=== PATIENT | female | born 1935 | race Caucasian/White ===

== ENCOUNTER 2016-12-27 08:40 | Emergency (ER) | payer OTHER ==
[2016-12-27 08:52] VITALS: O2SAT 90
[2016-12-27] MEDS ORDERED: SILVER NITRATE APPLICATOR 1 APPL TP ONE (09:11)
[2016-12-27] MEDS ORDERED: PHENYLEPHRINE 0.5% NASAL 15 ML SPRAY ONE (09:11)
[2016-12-27] MEDS ORDERED: COCAINE HCL 4% 4 ML BTL TP ONE (09:11)
--- NOTE | 2016-12-27 09:54 | EDPHY ---
H & P Time Seen by Provider: 12/27/16 09:12 HPI/ROS: Chief complaint. Nose bleed HPI. 81-year-old female with nose bleed that started this morning. Bleeding from the right side of her nose. She has had previous nose bleeds requiring cautery. No recent nose bleeds however. Denies trauma to her nose, recent upper respiratory symptoms. She does take warfarin and has been neglecting having her INR checked recently. No shortness of breath or chest discomfort ROS Constitutional. no fever/chills, no weakness Eyes. no problems with vision ENT. Nosebleed Cardiovascular. no chest pain Respiratory. no shortness of breath, no cough Abdominal. no abdominal pain, no nausea/vomiting, no diarrhea . no problems urinating MS. no calf pain/swelling, no neck/back pain, no joint pain Skin. no rash Lymph. no swollen glands Neuro. no headache, no dizziness, no difficulty walking or with speech Past Medical/Surgical History: Past medical history significant for atrial fibrillation on Coumadin, cardioversions, pacemaker with defibrillator, aortic valve replacement, atrial septal defect, asthma Social History: , nonsmoker, no alcohol Smoking Status: Never smoked Physical Exam: General Appearance: Alert pleasant well-developed female mild distress vital signs are stable. Eyes: Pupils equal and round no pallor or injection. ENT, active bleeding from right-sided nose Respiratory: There are no retractions, lungs are clear to auscultation. Cardiovascular: Regular rate and rhythm. Gastrointestinal: Abdomen is soft and nontender, no masses, bowel sounds normal. Neurological: Awake and alert, sensory and motor exams grossly normal. Skin: Warm and dry, no rashes. Musculoskeletal: Neck is supple nontender. Extremities symmetrical, full range of motion. Psychiatric: Patient is oriented X 3, there is no agitation. Constitutional: Initial Vital Signs Temperature (C) 36.5 C 12/27/16 08:40 Heart Rate 71 12/27/16 08:40 Respiratory Rate 20 12/27/16 08:40 Blood Pressure 131/72 H 12/27/16 08:40 O2 Sat (%) 90 L 12/27/16 08:40 O2 Delivery Mode Room Air Allergies/Adverse Reactions: No Known Allergies Allergy (Verified 12/27/16 08:46) Home Medications: Medication Instructions Recorded ASPIRIN 07/21/15 Amlodipine Besylate 07/21/15 CALCIUM 07/21/15 Centrum Silver Tablet 07/21/15 Miralax 17 gm (OTC) 07/21/15 Paroxetine HCl 07/21/15 Preservision Softgel 07/21/15 Synthroid 07/21/15 Warfarin Sodium 07/21/15 buPROPion 07/21/15 traZODONE 07/21/15 Medical Decision Making Procedures: Clots were cleared from patient's nose by blowing. Sergio-Synephrine spray. Cotton balls are placed in both nares soaked in cocaine solution. These are removed after 10 minutes The cotton balls were removed. Inspection reveals no bleeding in the left nostril. There appears to be multiple punctate bleeding spots along the septum. A 5.5 cm rhino rocket is placed and inflated with 3 mL of normal saline. Bleeding appears to be controlled at this point ED Course/Re-evaluation: Re-evaluation 11:15 a.m.-- Differential Diagnosis: Patient appears to have right anterior epistaxis with an elevated INR secondary to Coumadin which she had not had checked in quite some time. Bleeding now seems to be controlled. I considered posterior epistaxis as well. - Data Points Laboratory Results: Laboratory Results 12/27/16 09:30 12/27/16 09:30 12/27/16 12/27/16 12/27/16 09:30 09:30 09:30 WBC 6.92 10^3/uL 10^3/uL (3.80-9.50) RBC 4.08 10^6/uL L 10^6/uL (4.18-5.33) Hgb 12.5 g/dL L g/dL (12.6-16.3) Hct 38.1 % % (38.0-47.0) MCV 93.4 fL fL (81.5-99.8) MCH 30.6 pg pg (27.9-34.1) MCHC 32.8 g/dL g/dL (32.4-36.7) RDW 14.4 % % (11.5-15.2) Plt Count 159 10^3/uL 10^3/uL (150-400) MPV 9.5 fL fL (8.7-11.7) Neut % (Auto) 77.9 % H % (39.3-74.2) Lymph % (Auto) 10.7 % L % (15.0-45.0) [place] % (Auto) 6.8 % % (4.5-13.0) Eos % (Auto) 3.6 % % (0.6-7.6) Baso % (Auto) 0.9 % % (0.3-1.7) Nucleat RBC Rel Count 0.0 % % (0.0-0.2) Absolute Neuts (auto) 5.39 10^3/uL 10^3/uL (1.70-6.50) Absolute Lymphs (auto) 0.74 10^3/uL L 10^3/uL (1.00-3.00) Absolute Monos (auto) 0.47 10^3/uL 10^3/uL (0.30-0.80) Absolute Eos (auto) 0.25 10^3/uL 10^3/uL (0.03-0.40) Absolute Basos (auto) 0.06 10^3/uL 10^3/uL (0.02-0.10) Absolute Nucleated RBC 0.00 10^3/uL 10^3/uL (0-0.01) Immature Gran % 0.1 % % (0.0-1.1) Immature Gran # 0.01 10^3/uL 10^3/uL (0.00-0.10) PT 35.0 SEC H SEC (12.0-15.0) INR 3.42 H (0.83-1.16) APTT 43.2 SEC H SEC (23.0-38.0) Sodium 142 mEq/L mEq/L (134-144) Potassium 4.2 mEq/L mEq/L (3.5-5.2) Chloride 108 mEq/L mEq/L (97-110) Carbon Dioxide 24 mEq/l mEq/l (22-31) Anion Gap 10 mEq/L mEq/L (8-16) BUN 19 mg/dL mg/dL (7-23) Creatinine 1.0 mg/dL mg/dL (0.6-1.0) Estimated GFR 53 Glucose 86 mg/dL mg/dL (70-100) Calcium 9.2 mg/dL mg/dL (8.5-10.4) Medications Given: Discontinued Medications Cephalexin (Keflex 500 Mg Prepack#4) 1 btl TAKEHOME EDNOW ONE PRN Reason: Protocol Stop: 12/27/16 11:23 Last Admin: 12/27/16 11:38 Dose: 1 btl Departure - Departure Disposition: Home, Routine, Self-Care Clinical Impression: Acute anterior epistaxis Condition: Good Instructions: Cephalexin (By mouth), Nosebleed (ED) Additional Instructions: Keep packing in for 2-3 days. Use cephalexin which we are giving you 1 pill twice daily while you have the packing in. Follow up with ENT to have packing removed. Your Coumadin level is high today so hold your Coumadin tonight and tomorrow and then resume normal doses. Call Dr. Del Cid today to be seen on Saturday to have packing removed. Referrals: Patient,NotPresent [Unknown] - As per Instructions Maribeth Alarcon MD [Medical Doctor] - As per Instructions Danya Huntley MD [Primary Care Provider] - 2-3 days, call for appt.
[2016-12-27 09:57] LABS: % IMMATURE GRANULYOCYTES 0.1 % (0.0-1.1); ABSOLUTE IMMATURE GRANULOCYTES 0.01 10^3/uL (0.00-0.10); ADD DIFF? NO; ADD MORPH? NO; ADD SCAN? NO; ATYPICAL LYMPHOCYTE FLAG 0 (0-99); FRAGMENT RBC FLAG 0 (0-99); HEMATOCRIT 38.1 % (38.0-47.0); HEMOGLOBIN 12.5 g/dL (12.6-16.3); LEFT SHIFT FLG 0 (0-99); LIPEMIA HEMOLYSIS FLAG 80 (0-99); MEAN CELL HEMOGLOBIN 30.6 pg (27.9-34.1); MEAN CELL HEMOGLOBIN CONCENTR. 32.8 g/dL (32.4-36.7); MEAN CELL VOLUME 93.4 fL (81.5-99.8); MEAN PLATELET VOLUME 9.5 fL (8.7-11.7); PLATELET CLUMPS FLAG 0 (0-99); PLATELET COUNT 159 10^3/uL (150-400); RED BLOOD CELL COUNT 4.08 10^6/uL (4.18-5.33); RED CELL DISTRIBUTION WIDTH 14.4 % (11.5-15.2)
[2016-12-27 10:06] LABS: INR 3.42 (0.83-1.16)
[2016-12-27 10:07] LABS: APTT 43.2 SEC (23.0-38.0)
[2016-12-27 10:14] LABS: ANION GAP 10 mEq/L (8-16); CALCIUM 9.2 mg/dL (8.5-10.4); CARBON DIOXIDE 24 mEq/l (22-31); CHLORIDE 108 mEq/L (97-110); GLOMERULAR FILTRATION RATE 53; GLUCOSE 86 mg/dL (70-100); POTASSIUM 4.2 mEq/L (3.5-5.2); SODIUM 142 mEq/L (134-144)
[2016-12-27] MEDS ORDERED: CEPHALEXIN 500MG PREPACK#4 BTL TAKEHOME ONE (11:22)
[2016-12-27 11:40] VITALS: BP 104/82; PULSE 70; RESP 18; TEMP 98.2
== END 2016-12-27 12:10 | disposition home or self-care (01) ==
LOC: EDUNIT#
PROC: 2Y41X5Z Packing of Nasal Region using Packing Material (ICD-10-PCS; principal; 2016-12-27)
DX: R04.0 Epistaxis (principal); J45.909 Unspecified asthma, uncomplicated; Z79.01 Long term (current) use of anticoagulants; Z79.82 Long term (current) use of aspirin; Z95.0 Presence of cardiac pacemaker

== ENCOUNTER 2016-12-27 14:29 | Emergency (ER) | payer OTHER ==
[2016-12-27 14:36] VITALS: RESP 16
--- NOTE | 2016-12-27 15:20 | EDPHY ---
H & P Stated Complaint: ONGOING NOSE BLEED HPI/ROS: HPI CHIEF COMPLAINT: Right Nare epistaxis HISTORY OF PRESENT ILLNESS: This patient very pleasant 81-year-old female, she lives at [facility], she was seen here earlier today for epistaxis. She had a right Nare anterior bleed with packing in place. She presents back to the emergency room as she is concerned that it is rebleeding. She tells me that when she arrived back at [facility] she had a few drops of blood come from her right Baptiste. She denies any vomiting of blood. Denies generalized weakness, chest pain, shortness of breath, denies significant amount of bleeding. Currently upon arrival to the emergency room the patient is hemodynamically stable no acute distress. She is having no active bleeding at this time. Will continue to monitor for further bleeding. If she continues to bleed we may need to reach change her packing. Past Medical History: Atrial fibrillation, on Coumadin, pacemaker, aortic valve Past Surgical History: Aortic valve replacement Social History: Denies daily use of drugs alcohol tobacco products., lives at [facility] Family History: Noncontributory ROS REVIEW OF SYSTEMS: A comprehensive 10 point review of systems is otherwise negative aside from elements mentioned in the history of present illness. Exam Constitutional appears well nontoxic triage nursing summary reviewed, vital signs reviewed, awake/alert. Eyes normal conjunctivae and sclera, EOMI, PERRLA. HENT left Nare: Packing in place, no significant active bleeding. Posterior pharynx normal. No active bleeding posteriorly. normal inspection, atraumatic, moist mucus membranes, no epistaxis, neck supple/ no meningismus, no raccoon eyes. Respiratory clear to auscultation bilaterally, normal breath sounds, no respiratory distress, no wheezing. Cardiovascular rate normal, regular rhythm, no murmur, no edema, distal pulses normal. Gastrointestinal soft, non-tender, no rebound, no guarding, normal bowel sounds, no distension, no pulsatile mass. Genitourinary no CVA tenderness. Musculoskeletal no midline vertebral tenderness, full range of motion, no calf swelling, no tenderness of extremities, no meningismus, good pulses, neurovascularly intact. Skin pink, warm, & dry, no rash, skin atraumatic. Neurologic awake, alert and oriented x 3, AAOx3, moves all 4 extremities equally, motor intact, sensory intact, CN II-XII intact, normal cerebellar, normal vision, normal speech. Psychiatric normal mood/affect. Heme/Lymph/Immune no lymphadenopathy. Differential Diagnosis: Includes but is not limited to in a particular order, epistaxis on Coumadin, right anterior near bleed. Right posterior near bleed. Medical Decision Making: At this time this patient is not actively bleeding. Will continue to monitor closely for further bleeding. If she states hemodynamically stable no active bleeding allow her to go back to [facility]. Patient's recent chart reviewed. Re-evaluation: 1608: Re-evaluation at this time patient remains hemodynamically stable no acute distress has been no evidence of further epistaxis. She monitored here for over an hour. I will allow her to go back to [facility]. She understands return emergency room if develops any worsening symptoms questions or concerns. Source: Patient - Personal History Current Tetanus Diphtheria and Acellular Pertussis (TDAP): Yes - Medical/Surgical History Hx Asthma: Yes Hx Chronic Respiratory Disease: No Hx Diabetes: No Hx Cardiac Disease: Yes Hx Renal Disease: No Hx Cirrhosis: No Hx Alcoholism: No Hx HIV/AIDS: No Hx Splenectomy or Spleen Trauma: No Other PMH: a fib w/ multiple cardioversions; pacemater w/ defib; aortic valve replacement; atrial septal defect; cataract B; lumpectomy r breast; asthma; - Social History Smoking Status: Never smoked Constitutional: Initial Vital Signs Temperature (C) 36.5 C 12/27/16 14:33 Heart Rate 70 12/27/16 14:33 Respiratory Rate 16 12/27/16 14:33 Blood Pressure 97/53 L 12/27/16 14:33 O2 Sat (%) 90 L 12/27/16 14:33 O2 Delivery Mode Room Air Allergies/Adverse Reactions: No Known Allergies Allergy (Verified 12/27/16 08:46) Home Medications: Medication Instructions Recorded ASPIRIN 07/21/15 Amlodipine Besylate 07/21/15 CALCIUM 07/21/15 Centrum Silver Tablet 07/21/15 Miralax 17 gm (OTC) 07/21/15 Paroxetine HCl 07/21/15 Preservision Softgel 07/21/15 Synthroid 07/21/15 Warfarin Sodium 07/21/15 buPROPion 07/21/15 traZODONE 07/21/15 Departure - Departure Disposition: Home, Routine, Self-Care Clinical Impression: Epistaxis Condition: Good Instructions: Nosebleed (ED) Additional Instructions: 1. Return emergency room if you have any further bleeding. 2. You will need to have her packing removed in 48 hours. 3. Your more than welcome to follow up. I have removed or Ear Nose and Throat. Referrals: Danya Huntley MD [Primary Care Provider] - As per Instructions Levi Parra MD [Medical Doctor] - As per Instructions
[2016-12-27 16:19] VITALS: BP 140/78; PULSE 80; TEMP 98.4; O2SAT 96
== END 2016-12-27 16:19 | disposition home or self-care (01) ==
DX: R04.0 Epistaxis (principal); J45.909 Unspecified asthma, uncomplicated; Z79.01 Long term (current) use of anticoagulants; Z79.82 Long term (current) use of aspirin; Z95.0 Presence of cardiac pacemaker

== ENCOUNTER 2016-12-29 15:59 | Emergency (ER) | payer OTHER ==
[2016-12-29 16:04] VITALS: RESP 16; TEMP 97.5
--- NOTE | 2016-12-29 16:56 | EDPHY ---
H & P Stated Complaint: remove nasal packing placed 3 days ago Time Seen by Provider: 12/29/16 16:33 HPI/ROS: CHIEF COMPLAINT: Requesting nasal packing removal HISTORY OF PRESENT ILLNESS: The patient presents to the ED requesting nasal packing removal. She has a history of epistaxis treated in the emergency department 3 days ago. She is on Coumadin for atrial fibrillation. She stop taking Coumadin at that point time. The patient denies any fever. She does have some mild generalized weakness. She denies abdominal pain or melena. She denies additional acute complaints. REVIEW OF SYSTEMS: A comprehensive 10 point review of systems is otherwise negative aside from elements mentioned in the history of present illness. Source: Patient - Personal History Current Tetanus/Diphtheria Vaccine: Unsure Current Tetanus Diphtheria and Acellular Pertussis (TDAP): Unsure - Medical/Surgical History Hx Asthma: Yes Hx Chronic Respiratory Disease: No Hx Diabetes: No Hx Cardiac Disease: Yes Hx Renal Disease: No Hx Cirrhosis: No Hx Alcoholism: No Hx HIV/AIDS: No Hx Splenectomy or Spleen Trauma: No Other PMH: a fib w/ multiple cardioversions; pacemater w/ defib; aortic valve replacement; atrial septal defect; cataract B; lumpectomy r breast; asthma; - Social History Smoking Status: Never smoked - Physical Exam Exam: General Appearance: Alert, no distress Eyes: Pupils equal and round no pallor or injection ENT, Mouth: Nasal balloon noted in right anterior septum Respiratory: There are no retractions, lungs are clear to auscultation Cardiovascular: Regular rate and rhythm Gastrointestinal: Abdomen is soft and nontender, no masses, bowel sounds normal Neurological: A&O, normal motor function, normal sensory exam, normal cranial nerves Skin: Warm and dry, no rashes Musculoskeletal: Neck is supple nontender Extremities: symmetrical, full range of motion Constitutional: Initial Vital Signs Temperature (C) 36.4 C 12/29/16 16:01 Heart Rate 70 12/29/16 16:01 Respiratory Rate 16 12/29/16 16:01 Blood Pressure 134/83 H 12/29/16 16:01 O2 Sat (%) 95 12/29/16 16:01 O2 Delivery Mode Room Air Allergies/Adverse Reactions: No Known Allergies Allergy (Verified 12/27/16 08:46) Home Medications: Medication Instructions Recorded ASPIRIN 07/21/15 Amlodipine Besylate 07/21/15 CALCIUM 07/21/15 Centrum Silver Tablet 07/21/15 Miralax 17 gm (OTC) 07/21/15 Paroxetine HCl 07/21/15 Preservision Softgel 07/21/15 Synthroid 07/21/15 Warfarin Sodium 07/21/15 buPROPion 07/21/15 traZODONE 07/21/15 Medical Decision Making ED Course/Re-evaluation: The patient presents to the ED requesting packing removal. This was performed by myself without complication. She was observed in the ED for 1 hour without recurrent bleeding. She has complained of some mild generalized weakness without fever or other localizing symptoms. She is noted to have no evidence of a critical anemia. Her INR is currently 2.1. The patient will be discharged from the emergency department at 6:00 p.m. with customary aftercare instructions and return precautions. Differential Diagnosis: Differential diagnosis considered includes anterior epistaxis, critical anemia, hypovolemia - Data Points Laboratory Results: Laboratory Results 12/29/16 17:00 12/29/16 12/29/16 17:00 17:00 WBC 8.55 10^3/uL 10^3/uL (3.80-9.50) RBC 4.01 10^6/uL L 10^6/uL (4.18-5.33) Hgb 12.3 g/dL L g/dL (12.6-16.3) Hct 37.2 % L % (38.0-47.0) MCV 92.8 fL fL (81.5-99.8) MCH 30.7 pg pg (27.9-34.1) MCHC 33.1 g/dL g/dL (32.4-36.7) RDW 14.6 % % (11.5-15.2) Plt Count 173 10^3/uL 10^3/uL (150-400) MPV 9.5 fL fL (8.7-11.7) Neut % (Auto) 79.2 % H % (39.3-74.2) Lymph % (Auto) 9.2 % L % (15.0-45.0) [place] % (Auto) 8.3 % % (4.5-13.0) Eos % (Auto) 2.3 % % (0.6-7.6) Baso % (Auto) 0.6 % % (0.3-1.7) Nucleat RBC Rel Count 0.0 % % (0.0-0.2) Absolute Neuts (auto) 6.77 10^3/uL H 10^3/uL (1.70-6.50) Absolute Lymphs (auto) 0.79 10^3/uL L 10^3/uL (1.00-3.00) Absolute Monos (auto) 0.71 10^3/uL 10^3/uL (0.30-0.80) Absolute Eos (auto) 0.20 10^3/uL 10^3/uL (0.03-0.40) Absolute Basos (auto) 0.05 10^3/uL 10^3/uL (0.02-0.10) Absolute Nucleated RBC 0.00 10^3/uL 10^3/uL (0-0.01) Immature Gran % 0.4 % % (0.0-1.1) Immature Gran # 0.03 10^3/uL 10^3/uL (0.00-0.10) PT 24.0 SEC H D SEC (12.0-15.0) INR 2.13 H (0.83-1.16) APTT 36.3 SEC SEC (23.0-38.0) Departure - Departure Disposition: Home, Routine, Self-Care Clinical Impression: Encounter for removal of nasal packing Condition: Good Instructions: Nosebleed (ED) Additional Instructions: 1. Your INR is 2.13. 2. Please follow up with your primary care provider as needed. 3. Please return to the emergency department for any worsening symptoms. 4. You may follow up with the Ear Nose Throat physician at [facility] for any ongoing symptoms of intermittent nose bleeding. Referrals: Danya Huntley MD [Primary Care Provider] - As per Instructions Denny Felix MD [Medical Doctor] - As per Instructions
[2016-12-29 17:12] LABS: % IMMATURE GRANULYOCYTES 0.4 % (0.0-1.1); ABSOLUTE IMMATURE GRANULOCYTES 0.03 10^3/uL (0.00-0.10); ADD DIFF? NO; ADD MORPH? NO; ADD SCAN? NO; ATYPICAL LYMPHOCYTE FLAG 0 (0-99); FRAGMENT RBC FLAG 0 (0-99); HEMATOCRIT 37.2 % (38.0-47.0); HEMOGLOBIN 12.3 g/dL (12.6-16.3); LEFT SHIFT FLG 0 (0-99); LIPEMIA HEMOLYSIS FLAG 80 (0-99); MEAN CELL HEMOGLOBIN 30.7 pg (27.9-34.1); MEAN CELL HEMOGLOBIN CONCENTR. 33.1 g/dL (32.4-36.7); MEAN CELL VOLUME 92.8 fL (81.5-99.8); MEAN PLATELET VOLUME 9.5 fL (8.7-11.7); PLATELET CLUMPS FLAG 0 (0-99); PLATELET COUNT 173 10^3/uL (150-400); RED BLOOD CELL COUNT 4.01 10^6/uL (4.18-5.33); RED CELL DISTRIBUTION WIDTH 14.6 % (11.5-15.2)
[2016-12-29 17:21] LABS: APTT 36.3 SEC (23.0-38.0); INR 2.13 (0.83-1.16)
[2016-12-29 18:33] VITALS: BP 130/79; PULSE 72; O2SAT 92
== END 2016-12-29 18:33 | disposition home or self-care (01) ==
DX: Z48.00 Encounter for change or removal of nonsurgical wound dressing (principal); J45.909 Unspecified asthma, uncomplicated; Z79.01 Long term (current) use of anticoagulants; Z79.82 Long term (current) use of aspirin; Z95.0 Presence of cardiac pacemaker

== ENCOUNTER → 2017-06-11 | Outpatient (CLI) | payer OTHER | LOC: FIMAGING 14:46 | PROVIDERS: ATTEND Internal Medicine | DX: M47.816 Spondylosis without myelopathy or radiculopathy, lumbar region (principal); M46.97 Unspecified inflammatory spondylopathy, lumbosacral region; I70.90 Unspecified atherosclerosis ==

== ENCOUNTER → 2017-08-20 | Outpatient (CLI) | payer OTHER | LOC: FIMAGING 13:59 | PROVIDERS: ATTEND Physician Assistant Medical | DX: I65.23 Occlusion and stenosis of bilateral carotid arteries (principal) ==

== ENCOUNTER 2017-11-07 14:43 | Emergency (ER) | payer OTHER ==
[2017-11-07 14:59] LABS: PLATELET COUNT 218 10^3/uL (150-400)
[2017-11-07] MEDS ORDERED: NS 1,000 ML IV ONE (15:08)
--- NOTE | 2017-11-07 15:13 | EDPHY ---
H & P Stated Complaint: Syncope one week ago, dizzy/weakness, changing meds. Time Seen by Provider: 11/07/17 14:56 HPI/ROS: CHIEF COMPLAINT: Generalized weakness HISTORY OF PRESENT ILLNESS: The patient is an 82-year-old female who is sent from [facility] for generalized weakness. She reports that she has been becoming gradually weaker over the last 2 weeks. She had a fall about a week and a half ago and was told she might have fractured her ribs. She did not lose consciousness. She has been recovering and doing a lot of lying around in bed since. X-rays were not performed. She has not had any fevers or infections. She has not had any diarrhea or vomiting. She does have a history of atrial fibrillation and is on Coumadin also pacemaker and AV valve replacement several years ago. She has a history of hypoxia and is at 2 L at baseline. REVIEW OF SYSTEMS: Constitutional: denies: chills, fever, recent illness, recent injury EENTM: denies: blurred vision, double vision, nose congestion Respiratory: denies: cough, shortness of breath Cardiac: denies: chest pain, irregular heart rate, lightheadedness, palpitations Gastrointestinal/Abdominal: denies: abdominal pain, diarrhea, nausea, vomiting, blood streaked stools Genitourinary: denies: dysuria, frequency, hematuria, pain Musculoskeletal: denies: joint pain, muscle pain Skin: denies: lesions, rash, jaundice, bruising Neurological: denies: headache, numbness, paresthesia, tingling, dizziness, weakness Hematologic/Lymphatic: denies: blood clots, easy bleeding, easy bruising Immunologic/allergic: denies: HIV/AIDS, transplant EXAM: GENERAL: Well-appearing, well-nourished and in no acute distress. HEAD: Atraumatic, normocephalic. EYES: Pupils equal round and reactive to light, extraocular movements intact, sclera anicteric, conjunctiva are normal. ENT: TMs normal, nares patent, oropharynx clear without exudates. Moist mucous membranes. NECK: Normal range of motion, supple without lymphadenopathy or JVD. LUNGS: Breath sounds clear to auscultation bilaterally and equal. No wheezes rales or rhonchi. HEART: Regular rate and rhythm without murmurs, rubs or gallops. ABDOMEN: Soft, nontender, normoactive bowel sounds. No guarding, no rebound. No masses appreciated. BACK: No CVA tenderness, no spinal tenderness, step-offs or deformities EXTREMITIES: Normal range of motion, no pitting or edema. No clubbing or cyanosis. NEUROLOGICAL: Cranial nerves II through XII grossly intact. Normal speech, normal gait. 5/5 strength, normal movement in all extremities, normal sensation , NIH stroke score 0 PSYCH: Normal mood, normal affect. SKIN: Warm, dry, normal turgor, no visible rashes or lesions. Source: Patient Exam Limitations: No limitations - Personal History Current Tetanus/Diphtheria Vaccine: Unsure Current Tetanus Diphtheria and Acellular Pertussis (TDAP): Unsure - Medical/Surgical History Hx Asthma: Yes Hx Chronic Respiratory Disease: No Hx Diabetes: No Hx Cardiac Disease: Yes Hx Renal Disease: No Hx Cirrhosis: No Hx Alcoholism: No Hx HIV/AIDS: No Hx Splenectomy or Spleen Trauma: No Other PMH: a fib w/ multiple cardioversions; pacemater w/ defib; aortic valve replacement; atrial septal defect; cataract B; lumpectomy r breast; asthma; - Family History Significant Family History: No pertinent family hx - Social History Smoking Status: Never smoked Alcohol Use: Sober Drug Use: None Constitutional: Initial Vital Signs Temperature (C) 36.4 C 11/07/17 14:49 Heart Rate 65 11/07/17 14:49 Respiratory Rate 20 11/07/17 14:49 Blood Pressure 100/81 H 11/07/17 14:49 O2 Sat (%) 95 11/07/17 14:49 O2 Delivery Mode Nasal Cannula O2 (L/minute) 2 Allergies/Adverse Reactions: No Known Allergies Allergy (Verified 12/27/16 08:46) Home Medications: Medication Instructions Recorded ASPIRIN 07/21/15 Amlodipine Besylate 07/21/15 CALCIUM 07/21/15 Centrum Silver Tablet 07/21/15 Miralax 17 gm (OTC) 07/21/15 Paroxetine HCl 07/21/15 Preservision Softgel 07/21/15 Synthroid 07/21/15 Warfarin Sodium 07/21/15 buPROPion 07/21/15 traZODONE 07/21/15 Medical Decision Making - Diagnostics Imaging Results: Imaging Impressions Chest X-Ray 11/07/17 15:09 Impression: 1. Clear lungs. No pneumonia or acute process. 2. Cardiomegaly. No failure or effusion. Head CT 11/07/17 15:13 Impression: No acute intracranial process. Specifically, no subdural hematoma. Findings discussed with Emergency Department physician, Gume Kent M.D., on November 07, 2017 at 1544. Imaging: Discussed imaging studies w/ call center associate Radiologist ED Course/Re-evaluation: 3:10 p.m. nurse spoke with the [facility] and her physical therapist there. It sounds as though when the patient fell 2 weeks ago they thought she broke a rib. They made her rest and today she was going to begin physical therapy when the physical therapist noticed that she seemed weaker. They sent her to the ER because they thought it might be her heart making her weaker. The patient denies any chest pain or shortness of breath. It is likely due to deconditioning from resting from her fall. We will evaluate. 3:50 p.m. the patient is reassured by her testing thus far. I do not see any rib fractures on her x-ray. She states that they told her she had broken ribs on the right side but did not do an x-ray. She had been resting in bed and this is why she is likely deconditioned and weak and needs to go to physical therapy. I do not think this represents a cardiac issue. We are waiting for urinalysis. 5:15 p.m. urinalysis is negative. Patient states that she has been doing a lot of lying around since she fell last week. I suspect that she is deconditioned. Physical therapy is exactly what she needs. We will call notify the prison. Her friend is with her who agrees with this assessment and plan. She will take her back here they concerned about getting back to the prison by 7 because that is when they stop Serving dinner. Differential Diagnosis: Partial list of the Differential diagnosis considered include but were not limited to; deconditioning, dehydration, urinary tract infection, electrolyte abnormality and although unlikely based on the history and physical exam, I also considered head injury, pneumonia, pneumothorax, CVA. I discussed these differential diagnoses and the plan with the patient as well as the usual and expected course. The patient understands that the diagnosis is provisional and that in medicine we are not always correct and that further workup is often warranted. Usual and customary warnings were given. All of the patient's questions were answered. The patient was instructed to return to the emergency department should the symptoms at all worsen or return, otherwise to followup with the physician as we discussed. - Data Points Laboratory Results: Laboratory Results 11/07/17 14:50 11/07/17 14:50 11/07/17 11/07/17 11/07/17 16:08 14:50 14:50 WBC RBC Hgb Hct MCV MCH MCHC RDW Plt Count MPV Neut % (Auto) Lymph % (Auto) [place] % (Auto) Eos % (Auto) Baso % (Auto) Nucleat RBC Rel Count Absolute Neuts (auto) Absolute Lymphs (auto) Absolute Monos (auto) Absolute Eos (auto) Absolute Basos (auto) Absolute Nucleated RBC Immature Gran % Immature Gran # PT 18.1 SEC H SEC (12.0-15.0) INR 1.48 H (0.83-1.16) APTT 31.7 SEC SEC (23.0-38.0) Sodium 143 mEq/L mEq/L (135-145) Potassium 4.3 mEq/L mEq/L (3.5-5.2) Chloride 101 mEq/L mEq/L (97-110) Carbon Dioxide 28 mEq/l mEq/l (22-31) Anion Gap 14 mEq/L mEq/L (8-16) BUN 30 mg/dL H mg/dL (7-23) Creatinine 0.9 mg/dL mg/dL (0.6-1.0) Estimated GFR > 60 Glucose 101 mg/dL H mg/dL (70-100) Calcium 9.4 mg/dL mg/dL (8.5-10.4) Total Bilirubin 0.5 mg/dL mg/dL (0.1-1.4) Conjugated Bilirubin 0.5 mg/dL mg/dL (0.0-0.5) Unconjugated Bilirubin 0.0 mg/dL mg/dL (0.0-1.1) AST 32 IU/L IU/L (14-46) ALT 37 IU/L IU/L (9-52) Alkaline Phosphatase 90 IU/L IU/L (38-126) Troponin I < 0.012 ng/mL ng/mL (0.000-0.034) Total Protein 7.5 g/dL g/dL (6.3-8.2) Albumin 4.1 g/dL g/dL (3.5-5.0) TSH 4.980 uIU/mL H uIU/mL (0.465-4.680) Free T4 1.21 ng/dL ng/dL (0.59-2.19) Urine Color PALE YELLOW Urine Appearance CLEAR Urine pH 5.0 (5.0-7.5) Ur Specific [place] 1.010 (1.002-1.030) Urine Protein NEGATIVE (NEGATIVE) Urine Ketones NEGATIVE (NEGATIVE) Urine Blood NEGATIVE (NEGATIVE) Urine Nitrate NEGATIVE (NEGATIVE) Urine Bilirubin NEGATIVE (NEGATIVE) Urine Urobilinogen NEGATIVE EU EU (0.2-1.0) Ur Leukocyte Esterase NEGATIVE (NEGATIVE) Urine RBC 1-3 /hpf /hpf (0-3) Urine WBC 1-3 /hpf /hpf (0-3) Ur Epithelial Cells TRACE /lpf /lpf (NONE-1+) Urine Glucose NEGATIVE (NEGATIVE) 11/07/17 14:50 WBC 8.25 10^3/uL 10^3/uL (3.80-9.50) RBC 4.94 10^6/uL 10^6/uL (4.18-5.33) Hgb 15.1 g/dL g/dL (12.6-16.3) Hct 46.1 % % (38.0-47.0) MCV 93.3 fL fL (81.5-99.8) MCH 30.6 pg pg (27.9-34.1) MCHC 32.8 g/dL g/dL (32.4-36.7) RDW 13.2 % % (11.5-15.2) Plt Count 218 10^3/uL 10^3/uL (150-400) MPV 9.1 fL fL (8.7-11.7) Neut % (Auto) 75.5 % H % (39.3-74.2) Lymph % (Auto) 13.3 % L % (15.0-45.0) [place] % (Auto) 6.7 % % (4.5-13.0) Eos % (Auto) 3.2 % % (0.6-7.6) Baso % (Auto) 0.8 % % (0.3-1.7) Nucleat RBC Rel Count 0.0 % % (0.0-0.2) Absolute Neuts (auto) 6.23 10^3/uL 10^3/uL (1.70-6.50) Absolute Lymphs (auto) 1.10 10^3/uL 10^3/uL (1.00-3.00) Absolute Monos (auto) 0.55 10^3/uL 10^3/uL (0.30-0.80) Absolute Eos (auto) 0.26 10^3/uL 10^3/uL (0.03-0.40) Absolute Basos (auto) 0.07 10^3/uL 10^3/uL (0.02-0.10) Absolute Nucleated RBC 0.00 10^3/uL 10^3/uL (0-0.01) Immature Gran % 0.5 % % (0.0-1.1) Immature Gran # 0.04 10^3/uL 10^3/uL (0.00-0.10) PT INR APTT Sodium Potassium Chloride Carbon Dioxide Anion Gap BUN Creatinine Estimated GFR Glucose Calcium Total Bilirubin Conjugated Bilirubin Unconjugated Bilirubin AST ALT Alkaline Phosphatase Troponin I Total Protein Albumin TSH Free T4 Urine Color Urine Appearance Urine pH Ur Specific [place] Urine Protein Urine Ketones Urine Blood Urine Nitrate Urine Bilirubin Urine Urobilinogen Ur Leukocyte Esterase Urine RBC Urine WBC Ur Epithelial Cells Urine Glucose Medications Given: Discontinued Medications Sodium Chloride (Ns) 1,000 mls @ 0 mls/hr IV ONCE ONE; Wide Open PRN Reason: Protocol Stop: 11/07/17 15:09 Last Admin: 11/07/17 15:33 Dose: 1,000 mls Departure - Departure Disposition: Home, Routine, Self-Care Clinical Impression: Muscular deconditioning Condition: Fair Instructions: Weakness (ED) Additional Instructions: You need to return to physical therapy. You have become deconditioned with resting. Referrals: Patient,NotPresent [Unknown] - As per Instructions
[2017-11-07 15:27] LABS: INR 1.48 (0.83-1.16); PROTIME(PATIENT) 18.1 SEC (12.0-15.0)
--- NOTE | 2017-11-07 17:15 | CPEKG ---
Heart Rate: 70 RR Interval: 857 P-R Interval: 162 QRSD Interval: 148 QT Interval: 484 QTC Interval: 523 P Patten: 0 QRS Patten: 153 T Wave Patten: 8 EKG Severity - ABNORMAL ECG - EKG Impression: VENTRICULAR-PACED RHYTHM Electronically Signed By: Dutch Kidd 07-Nov-2017 21:25:23
[2017-11-07 17:32] VITALS: BP 166/74
== END 2017-11-07 17:31 | disposition home or self-care (01) ==
LOC: EDUNIT#
DX: M62.81 Muscle weakness (generalized) (principal); J45.909 Unspecified asthma, uncomplicated; E86.9 Volume depletion, unspecified; Z79.01 Long term (current) use of anticoagulants; Z79.82 Long term (current) use of aspirin; Z95.0 Presence of cardiac pacemaker

== ENCOUNTER 2018-11-13 22:13 | Observation (INO) | payer OTHER ==
--- NOTE | 2018-11-13 22:19 | EDPHY ---
H & P Stated Complaint: mechanical fall, limited trauma Time Seen by Provider: 11/13/18 22:19 HPI/ROS: HPI: The patient presents with a fall which occurred at her home about 1.5 hr prior to arrival. She is brought in by ambulance as a limited trauma activation. She is complaining of right-sided lateral chest wall and right flank pain. She slipped and fell, landing on a stone window ledge. She did not hit her head or lose consciousness. She landed on the ground then though was eventually able to stand up and walk on her own. She is feeling mildly short of breath. She does take Coumadin for atrial fibrillation. REVIEW OF SYSTEMS 10 systems were reviewed and negative with the exception of the elements mentioned in the history of present illness. PMHx: Atrial fibrillation on Coumadin, uses 2 L of oxygen, hypertension, aortic valve repair, has a MOST form stating that she is DNR with limited interventions TRAUMA PHYSICAL General Appearance: Alert, no distress Head: Atraumatic Eyes: Pupils equal, round, reactive ENT, Mouth: No hemotypanium, no oral trauma Neck: Non- tender, trachea midline Respiratory: Right-sided lateral low chest wall pain with point tenderness present, no subcutaneous air, lungs clear bilaterally Cardiovascular: Regular rate and rhythm Abdomen: Abdomen is soft with tenderness diffusely to the right flank, pelvis stable Skin: No lacerations, No abrasion Back: No midline T/L/S pain Extremities: Non-tender, full range of motion Neurological: A&Ox3, GCS=15,normal motor function with 5/5 strength in all 4 extremities, normal sensory exam Source: Patient, EMS, Old records Exam Limitations: No limitations - Medical/Surgical History Hx Asthma: Yes Hx Chronic Respiratory Disease: No Hx Diabetes: No Hx Cardiac Disease: Yes Hx Renal Disease: No Hx Cirrhosis: No Hx Alcoholism: No Hx HIV/AIDS: No Hx Splenectomy or Spleen Trauma: No Other PMH: a fib w/ multiple cardioversions; pacemater w/ defib; aortic valve replacement; atrial septal defect; cataract B; lumpectomy r breast; asthma; - Social History Smoking Status: Never smoked Constitutional: Initial Vital Signs Temperature (C) 36.6 C 11/13/18 22:40 Heart Rate 71 11/13/18 22:40 Respiratory Rate 20 11/13/18 22:40 Blood Pressure 183/91 H 11/13/18 22:40 O2 Sat (%) 99 11/13/18 22:40 O2 Delivery Mode Nasal Cannula O2 (L/minute) 2 Allergies/Adverse Reactions: No Known Allergies Allergy (Verified 11/13/18 22:22) Home Medications: Medication Instructions Recorded ASPIRIN 07/21/15 Amlodipine Besylate 07/21/15 CALCIUM 07/21/15 Centrum Silver Tablet 07/21/15 Miralax 17 gm (OTC) 07/21/15 Paroxetine HCl 07/21/15 Preservision Softgel 07/21/15 Synthroid 07/21/15 Warfarin Sodium 07/21/15 buPROPion 07/21/15 traZODONE 07/21/15 Medical Decision Making - Diagnostics Imaging Results: Imaging Impressions Ribs w/Chest X-Ray 11/13/18 22:46 Impression: Acute, mildly displaced fractures of the right 9th, 10th, and 11th ribs, with no pneumothorax appreciated. CT chest abdomen pelvis with contrast demonstrates right lower posterior rib fractures of 9th, 10th, 11th, 12th with associated small subpleural hematoma, mild biliary duct dilatation, gallbladder absent, cardiomegaly, interpreted by direct Radiology. Imaging: I viewed and interpreted images myself Differential Diagnosis: 83-year-old female with atrial fibrillation on Coumadin, hypertension presents from home brought in by ambulance as limited trauma activation after a fall from standing, tripping on her oxygen concentrator tubing landing on a stone window ledge, now complaining of right-sided chest wall and flank pain. On exam, she is hypertensive, there is no external signs of trauma. She is tender throughout her right flank and lateral right lower ribcage with clear breath sounds bilaterally. Plan for basic labs, pain medication, CT scan of chest and abdomen. Differential diagnosis includes rib fracture, pulmonary contusion, pneumothorax , kidney injury, soft tissue contusion. CT scan demonstrated multiple rib fractures which are right-sided and small amount of pleural effusion. Patient's pain felt better with medication, however with any motion, pain is severe. I feel she should be admitted for further care. I discussed the case with Dr. Freeman the on-call trauma surgeon who came to the emergency department to evaluate the patient. Given the patient 's INR is quite elevated at 3.9, Dr. Freeman recommends we give FFP and I have ordered this for the patient. I discussed the case with Dr. Garcia the on- call hospitalist who will admit the patient. - Data Points Laboratory Results: Laboratory Results 11/13/18 22:35 11/13/18 22:35 11/13/18 11/13/18 11/13/18 22:35 22:35 22:35 WBC 5.20 10^3/uL 10^3/uL (3.80-9.50) RBC 4.18 10^6/uL 10^6/uL (4.18-5.33) Hgb 13.0 g/dL g/dL (12.6-16.3) Hct 40.0 % % (38.0-47.0) MCV 95.7 fL fL (81.5-99.8) MCH 31.1 pg pg (27.9-34.1) MCHC 32.5 g/dL g/dL (32.4-36.7) RDW 13.6 % % (11.5-15.2) Plt Count 141 10^3/uL L 10^3/uL (150-400) MPV 9.3 fL fL (8.7-11.7) Neut % (Auto) 68.8 % % (39.3-74.2) Lymph % (Auto) 19.4 % % (15.0-45.0) [place] % (Auto) 7.9 % % (4.5-13.0) Eos % (Auto) 3.1 % % (0.6-7.6) Baso % (Auto) 0.6 % % (0.3-1.7) Nucleat RBC Rel Count 0.0 % % (0.0-0.2) Absolute Neuts (auto) 3.58 10^3/uL 10^3/uL (1.70-6.50) Absolute Lymphs (auto) 1.01 10^3/uL 10^3/uL (1.00-3.00) Absolute Monos (auto) 0.41 10^3/uL 10^3/uL (0.30-0.80) Absolute Eos (auto) 0.16 10^3/uL 10^3/uL (0.03-0.40) Absolute Basos (auto) 0.03 10^3/uL 10^3/uL (0.02-0.10) Absolute Nucleated RBC 0.00 10^3/uL 10^3/uL (0-0.01) Immature Gran % 0.2 % % (0.0-1.1) Immature Gran # 0.01 10^3/uL 10^3/uL (0.00-0.10) PT 36.2 SEC H SEC (12.0-15.0) INR 3.90 H (0.83-1.16) APTT 44.2 SEC H SEC (23.0-38.0) Sodium 136 mEq/L mEq/L (135-145) Potassium 3.9 mEq/L mEq/L (3.5-5.2) Chloride 100 mEq/L mEq/L (97-110) Carbon Dioxide 26 mEq/l mEq/l (22-31) Anion Gap 10 mEq/L mEq/L (6-14) BUN 24 mg/dL H mg/dL (7-23) Creatinine 1.2 mg/dL H mg/dL (0.6-1.0) Estimated GFR 43 Glucose 103 mg/dL H mg/dL (70-100) Calcium 8.8 mg/dL mg/dL (8.5-10.4) Medications Given: Discontinued Medications Acetaminophen (Tylenol) 1,000 mg PO EDNOW ONE Stop: 11/13/18 22:46 Last Admin: 11/13/18 23:10 Dose: 1,000 mg Fentanyl (Sublimaze) 50 mcg IVP EDNOW ONE Stop: 11/13/18 22:46 Last Admin: 11/13/18 23:10 Dose: 50 mcg Miscellaneous Medication (Icy Hot Lidocaine/Menthol 4%/1% Patch) 1 patch TD EDNOW ONE Stop: 11/13/18 22:46 Last Admin: 11/13/18 23:10 Dose: 1 patch Departure - Departure Disposition: [facility] Inpatient Acute Clinical Impression: Multiple rib fractures involving four or more ribs, Supratherapeutic INR Fall Qualifiers: Encounter type: initial encounter Qualified Code(s): W19.XXXA - Unspecified fall, initial encounter Condition: Good
[2018-11-13] MEDS ORDERED: LIDOCAINE 4%/MENTHOL 1% PATCH TD ONE (22:45)
[2018-11-13] MEDS ORDERED: fentaNYL 100 MCG/2 ML INJ IVP ONE (22:45)
[2018-11-13] MEDS ORDERED: ACETAMINOPHEN 500 MG TAB PO ONE (22:45)
[2018-11-13] MEDS ORDERED: IOPAMIDOL (ISOVUE-300) 100 ML BTL ONE (22:51)
[2018-11-13 22:53] LABS: PLATELET COUNT 141 10^3/uL (150-400)
[2018-11-13 23:08] LABS: INR 3.9 (0.83-1.16); PROTIME(PATIENT) 36.2 SEC (12.0-15.0)
[2018-11-14] MEDS ORDERED: oxyCODONE IR 5 MG TAB PO PRN (00:55)
[2018-11-14] MEDS ORDERED: ONDANSETRON DISINTEGRATING 4 MG TAB PO PRN (00:55)
[2018-11-14] MEDS ORDERED: ONDANSETRON 4 MG/2 ML VIAL IVP PRN (00:55)
[2018-11-14] MEDS ORDERED: CYCLOBENZAPRINE 10 MG TAB PO PRN (01:47)
--- NOTE | 2018-11-14 02:02 | PDGENHP ---
History and Physical - Chief Complaint Fall - History of Present Illness 83 yo F w/ hx of bioprosthetic AV replacement, AF, BiV AICD, and hypertension presents after a fall. The patient tells me she tripped over her oxygen tubing while trying to close the blinds in her house. She fell onto a stone window sill and hit her ribs. She came to the ED as a result. In the ED evaluation is notable for acute rib fractures. She is being admitted for pain control. She is anticoagulated with warfarin for AF. Her pain is reasonably well controlled as long as she does not move too much. She denies other symptoms. She is being admitted for pain control and observation. Case discussed with Dr. Freeman and Dr. Hernandez; records reviewed and summarized above. History Information - Allergies/Home Medication List Allergies/Adverse Reactions: No Known Allergies Allergy (Verified 11/13/18 22:22) Home Medications: ASPIRIN 07/21/15 [Last Taken Unknown] Amlodipine Besylate 07/21/15 [Last Taken Unknown] CALCIUM 07/21/15 [Last Taken Unknown] Centrum Silver Tablet 07/21/15 [Last Taken Unknown] Miralax 17 gm (OTC) 07/21/15 [Last Taken Unknown] Paroxetine HCl 07/21/15 [Last Taken Unknown] Preservision Softgel 07/21/15 [Last Taken Unknown] Synthroid 07/21/15 [Last Taken Unknown] Warfarin Sodium 07/21/15 [Last Taken Unknown] buPROPion 07/21/15 [Last Taken Unknown] traZODONE 07/21/15 [Last Taken Unknown] I have personally reviewed and updated: family history, medical history - Past Medical History atrial fibrillation, hypertension - Surgical History Reports: cholecystectomy Additional surgical history: Bioprosthetic AV. BiV AICD - Family History Positive for: CAD, hypertension - Social History Smoking Status: Never smoked Review of Systems Review of Systems: ROS: 10pt was reviewed & negative except for what was stated in HPI & below Physical Exam Physical Exam: Temp Pulse Resp BP Pulse Ox 36.6 C 71 20 183/91 H 99 11/13/18 22:40 11/13/18 22:40 11/13/18 22:40 11/13/18 22:40 11/13/18 22:40 Constitutional: appears nourished, uncomfortable Eyes: PERRL, EOMI Ears, Nose, Mouth, Throat: moist mucous membranes, no oral mucosal ulcers Cardiovascular: regular rate and rhythym, systolic murmur Respiratory: no respiratory distress, clear to auscultation Gastrointestinal: normoactive bowel sounds, soft, non-tender abdomen Skin: warm, normal color Musculoskeletal: full muscle strength, no muscle tenderness Neurologic: AAOx3, CN II-XII Intact Psychiatric: interacting appropriately, not anxious Lab Data & Imaging Review 11/13/18 22:35 11/13/18 22:35 WBC 5.20 10^3/uL (3.80-9.50) 11/13/18 22:35 RBC 4.18 10^6/uL (4.18-5.33) 11/13/18 22:35 Hgb 13.0 g/dL (12.6-16.3) 11/13/18 22:35 Hct 40.0 % (38.0-47.0) 11/13/18 22:35 MCV 95.7 fL (81.5-99.8) 11/13/18 22:35 MCH 31.1 pg (27.9-34.1) 11/13/18 22:35 MCHC 32.5 g/dL (32.4-36.7) 11/13/18 22:35 RDW 13.6 % (11.5-15.2) 11/13/18 22:35 Plt Count 141 10^3/uL (150-400) L 11/13/18 22:35 MPV 9.3 fL (8.7-11.7) 11/13/18 22:35 Neut % (Auto) 68.8 % (39.3-74.2) 11/13/18 22:35 Lymph % (Auto) 19.4 % (15.0-45.0) 11/13/18 22:35 [place] % (Auto) 7.9 % (4.5-13.0) 11/13/18 22:35 Eos % (Auto) 3.1 % (0.6-7.6) 11/13/18 22:35 Baso % (Auto) 0.6 % (0.3-1.7) 11/13/18 22:35 Nucleat RBC Rel Count 0.0 % (0.0-0.2) 11/13/18 22:35 Absolute Neuts (auto) 3.58 10^3/uL (1.70-6.50) 11/13/18 22:35 Absolute Lymphs (auto) 1.01 10^3/uL (1.00-3.00) 11/13/18 22:35 Absolute Monos (auto) 0.41 10^3/uL (0.30-0.80) 11/13/18 22:35 Absolute Eos (auto) 0.16 10^3/uL (0.03-0.40) 11/13/18 22:35 Absolute Basos (auto) 0.03 10^3/uL (0.02-0.10) 11/13/18 22:35 Absolute Nucleated RBC 0.00 10^3/uL (0-0.01) 11/13/18 22:35 Immature Gran % 0.2 % (0.0-1.1) 11/13/18 22:35 Immature Gran # 0.01 10^3/uL (0.00-0.10) 11/13/18 22:35 PT 36.2 SEC (12.0-15.0) H 11/13/18 22:35 INR 3.90 (0.83-1.16) H 11/13/18 22:35 APTT 44.2 SEC (23.0-38.0) H 11/13/18 22:35 Sodium 136 mEq/L (135-145) 11/13/18 22:35 Potassium 3.9 mEq/L (3.5-5.2) 11/13/18 22:35 Chloride 100 mEq/L (97-110) 11/13/18 22:35 Carbon Dioxide 26 mEq/l (22-31) 11/13/18 22:35 Anion Gap 10 mEq/L (6-14) 11/13/18 22:35 BUN 24 mg/dL (7-23) H 11/13/18 22:35 Creatinine 1.2 mg/dL (0.6-1.0) H 11/13/18 22:35 Estimated GFR 43 11/13/18 22:35 Glucose 103 mg/dL (70-100) H 11/13/18 22:35 Calcium 8.8 mg/dL (8.5-10.4) 11/13/18 22:35 Patient ABO/Rh O POSITIVE 11/14/18 01:20 Imaging Review: Imaging Impressions Ribs w/Chest X-Ray 11/13/18 22:46 Impression: Acute, mildly displaced fractures of the right 9th, 10th, and 11th ribs, with no pneumothorax appreciated. Assessment & Plan Assessment: 83 yo F w/ hx of CAD, HTN, AF, and bioprosthetic AV valve presents after a fall complicated by rib fractures. Plan: 1. Acute rib fractures - Suffered as a result of a mechanical fall. XR notable for acute, mildly displaced fractures of the right 9th, 10th, and 11th ribs. Her pain is reasonably well controlled at the moment. She is therapeutically anticoagulated with warfarin for hx of AF. - Admit for observation - FFP for temporary INR reversal - Ok to restart warfarin without bridge when ok with trauma surgery - Trauma surgery following, appreciate assistance - Conservative pain control with lidocaine patch, high dose APAP, oxycodone PRN - PT/OT evaluations - Incentive spirometry ordered 2. Atrial fibrillation - On warfarin as an outpatient for therapeutic anticoagulation. - Holding warfarin noting acute fractures - Ok to restart when ok with trauma surgery - Monitor INR 3. Hx cardiomyopathy - [place] BiV [place]ICD [place] [address] Lazo. On furosemide 20 mg 3x weekly, follows with Dr. Shaw. 4. Hx bioprosthetic AV - Surgically placed in 2002. 5. Hypothyroid - Continue LTX Diet - Regular Code - DNR Ppx - SCDs Dispo - Admit under observation status
--- NOTE | 2018-11-14 03:16 | GCON ---
[f rep st] CONSULTATION ADMITTING DIAGNOSES: 1. Fall from standing. 2. Fractures of left ribs 7, 8, 9, 10, 11. Possible old fracture of right rib 5. 3. Atrial fibrillation. 4. Porcine aortic valve. 5. Over anticoagulation. HISTORY: The patient is an 83-year-old female who lives independently at [facility]. She has both a portable and a base oxygen concentrator. She is using her base oxygen concentrator. She is unclear whether she tripped over the oxygen tubing, but she did fall and hit the stone window ledge as she was trying to lower her blinds. She did lie on the floor for approximately 10 minutes, then got up and walked through the living room into the bedroom to get her alert button. She went back to the living room where she sat down and then pushed the alert button. The [facility] staff came to see her and did arrange for an EMS transfer. She was not too uncomfortable. On admission, a chest x-ray was performed, which did not show any signs of pneumothorax. A CT was performed which had the above-mentioned findings. She is a DNR. PAST MEDICAL HISTORY: She is a nonsmoker. She drinks wine on rare occasions. She has no known drug allergies. She does take Coumadin and is followed by the [facility]. She admits that she is not as complete as she might be with her warfarin followup. OTHER MEDICATIONS: Include amlodipine 2.5 mg every evening, Lasix 20 mg on Saturday, , and Saturday, 81 mg aspirin, warfarin 7.5 mg on Saturday and evenings and 5 mg on other nights. She does take Synthroid 100 mcg on Saturday, Saturday, and Saturday mornings and 80 mcg on other days. She takes paroxetine 30 mg every evening. She takes Wellbutrin 100 mg every morning. She takes trazodone 50 mg every evening for sleep. She takes PreserVision 1 tablet in the morning and in the evening. PAST SURGICAL HISTORY: Includes a tonsillectomy, ASD repair, pacemaker placement x2. The most current pacemaker is a defibrillator and a biventricular pacer. She has had aortic valve replaced (porcine). She has had cataract extraction with intraocular lens placement. She has had a cholecystectomy. She has had a D and C and two breast biopsies which were benign. There is no history of rheumatic fever, tuberculosis or hepatitis. She is unclear if she has ever had a transfusion. REVIEW OF SYSTEMS: She has had a concussion. She has had hypertension in the past. She has multiple dental crowns and her right upper 3rd molar has a nerve and plans are being made for reversal of anticoagulation and subsequent extraction. She wears lenses for visual correction. She does have macular degeneration. She has bilateral hearing aids. She has a history of peptic ulcer in the past. She has been hypothyroid for greater than 20 years. She does have nocturnal hypoxia, and use to wear her oxygen at 2 L/min until last summer when she started wearing it continuously at 2 L/min. She has occasional arrhythmias. She does have some borderline issues with stress incontinence. She has some difficulty with 1 flight of stairs. PHYSICAL EXAMINATION: GENERAL: She is awake, alert, and very comfortable. She does have a Lidoderm patch in place and has received high-dose Tylenol. She also has received fentanyl. VITAL SIGNS: Her blood pressure is 183/91 at 71. Respirations were 20. Her saturations are 99% on 2 L/min. Her temperature is 36.6. NEUROLOGIC: She is awake, alert, conversant, oriented x3 and her Marshall Coma Scale is 15. HEENT: Her skull is normocephalic and atraumatic. There are no raccoon eyes or Cespedes sign. She has normal dental occlusion. She has multiple dental crowns. NECK: Supple and nontender. I do not detect any thyroid enlargement. LYMPH: I do not detect any cervical, supraclavicular, axillary, or inguinal lymphadenopathy. BACK: Shows bruising posteriorly over approximately the 10th rib. CARDIAC: Shows a 3/6 systolic ejection murmur. Pacemaker is palpable. Well-healed median sternotomy scar is identified. BREASTS: Not examined. ABDOMEN: Soft, nontender, and nondistended. There are normoactive bowel sounds. PELVIS: Stable to AP and lateral compression. EXTREMITIES: Full range of motion in both her upper and lower extremities without evidence of injury. IMPRESSION: Patient who fell and broke several ribs, who is currently comfortable. PLAN: We will plan to bring her into the hospital to work with incentive spirometry and pain control modalities. Her INR is currently 3.9 and she was to will receive FFP to bring that down. Her hematocrit is 40, platelet count is 141, but she is on aspirin. Her sodium is 136. Her potassium is 3.9. Creatinine is 1.2, BUN is 24, glucose is 103. Because of her elevated creatinine and her age a nonsteroidal anti-inflammatory will not be used as part of her pain control regimen. /[id number]/MODL MTDD
[2018-11-14 05:45] LABS: PLATELET COUNT 117 10^3/uL (150-400)
[2018-11-14] MEDS: ACETAMINOPHEN 500 MG TAB PO SCH ×2 (05:49→14:01)
[2018-11-14 06:12] LABS: INR 2.4 (0.83-1.16)
--- NOTE | 2018-11-14 08:57 | SOAPPROG ---
SOAP Progress Note Assessment/Plan: Assessment: tertiary exam no new complaints except left lateral rib pain/ remembers fall/ no loc heent no signs of trauma/ perrla/eoms ok chest clear and symmetric, gladys left ribs cor rr abd soft, nontender extrem full rom and pulses/ no signs of trauma neuro intact skin intact back nontender with no deformities cxr well expanded with early effusion INR 2.4 hct 36 Plan:pt eval/ incentive spirometry 11/14/18 08:53 Objective: Vital Signs Temp Pulse Resp BP Pulse Ox 36.7 C 70 14 131/67 H 97 11/14/18 07:57 11/14/18 07:57 11/14/18 07:57 11/14/18 07:57 11/14/18 07:57 Laboratory Results 11/14/18 04:56 11/14/18 04:56 11/13/18 11/14/18 11/15/18 05:59 05:59 05:59 Intake Total 300 300 Balance 300 300 PT 25.0 SEC (12.0-15.0) H 11/14/18 04:56 INR 2.40 (0.83-1.16) H 11/14/18 04:56 ICD10 Worksheet Patient Problems: Problems Problem Status Onset Fall Acute Multiple rib fractures involving four or more ribs Acute Supratherapeutic INR Acute
[2018-11-14] MEDS ORDERED: POLYETHYLENE GLYCOL 3350 17 GM PKT PO PRN (08:58)
[2018-11-14] MEDS ORDERED: PATCH REMOVAL 1 EA PATCH TD ONE (09:00)
[2018-11-14] MEDS ORDERED: buPROPion SR 100 MG TAB PO SCH (09:00)
[2018-11-14] MEDS ORDERED: LEVOTHYROXINE 100 MCG TAB PO SCH (09:00)
[2018-11-14] MEDS ORDERED: PRESERVISION AREDS2 FORMULA EYE VIT 1 EACH PO SCH (09:00)
[2018-11-14 12:10] VITALS: BP 153/77
--- NOTE | 2018-11-14 13:52 | HOSPPROG ---
Hospitalist Progress Note Assessment/Plan: 83 yo F w/ hx of CAD, HTN, AF, and bioprosthetic AV valve presents after a fall complicated by rib fractures. First encounter, chart reviewed. *acute rib fx -mildly displaced right 9, 10, and 11 th rib -appreciate trauma seeing -risk for hemothorax *gait instability *atrial fibrillation -INR is therapeutic at 2.4 *renal insufficiency -creat 1.2 *hx of cardiomyopathy -hx of BiV AICD placement in 2005 -followed by Dr Shaw -on furosemide *hx of bioprosthetic AV in 2002 -cont oral anticoagulation *plan: will dc home with nursing care, reviewed her care w Dr Pond and he would like to see her in his office Saturday for f/u care. Subjective: Noemi is feeling fine, wants to go home. Objective: Vital Signs Temp Pulse Resp BP Pulse Ox 36.7 C 70 14 153/77 H 93 11/14/18 12:00 11/14/18 12:00 11/14/18 12:00 11/14/18 12:00 11/14/18 12:00 Laboratory Results 11/14/18 04:56 11/14/18 04:56 11/13/18 11/14/18 11/15/18 05:59 05:59 05:59 Intake Total 300 300 Balance 300 300 PT 25.0 SEC (12.0-15.0) H 11/14/18 04:56 INR 2.40 (0.83-1.16) H 11/14/18 04:56 - Physical Exam Constitutional: no apparent distress, appears nourished Eyes: PERRL Ears, Nose, Mouth, Throat: hearing normal Cardiovascular: regular rate and rhythym, systolic murmur Respiratory: no respiratory distress, clear to auscultation, reduced air movement (right base minimal reduced) Skin: warm, other (bruising to low back area (patient said this occurred a few days ago)) Musculoskeletal: generalized weakness Neurologic: AAOx3 Psychiatric: interacting appropriately ICD10 Worksheet Patient Problems: Problems Problem Status Onset Fall Acute Multiple rib fractures involving four or more ribs Acute Supratherapeutic INR Acute
--- NOTE | 2018-11-14 14:37 | PDIAF ---
- Diagnosis Diagnosis: right sided rib fractures Code Status: Do Not Resuscitate - Medication Management Discharge Medications: electronically signed and located in the Home Medication List. - Orders Services needed: Home Care, Registered Nurse Home Care Face to Face: I certify that this patient was under my care and that I had the required [id number] encounter meeting the encounter requirements on the discharge day. My findings support the fact that the patient is homebound as defined in Home Care Face to Face Continued: CMS Chapter 7 Medicare Benefits Manual 30.1.1 , The condition of the patient is such that there exists a normal inability to leave home and consequently, leaving home would require a considerable and taxing effort. Diet Recommendation: no restrictions on diet Diet Texture: Regular Texture Diet Additional Instructions: Call Dr. Pond office on SaturdayNovember 17, you will need an appointment with him and a follow-up chest x-ray that day I called Dr. Huntley and left her a message about your admission Recommending for tonight that you take a decreased dose of her Coumadin. Take 2.5 mg. Do not take the 5 mg Get your INR checked on Saturday and follow up either with the [facility] or Dr. Huntley If you develop worsening shortness of breath return to the ER Use a pillow to splint to help with the pain. Make sure you're out of bed frequently and turned cough and deep breathe to avoid pneumonia - Labs/Radiology PT/INR Date: 11/17/18 (weekly) - Follow Up Care Current Providers and Referrals: Danya Huntley MD [Primary Care Provider] - As per Instructions Lisandro Pond MD [Medical Doctor] -
--- NOTE | 2018-11-14 14:58 | ASMTCMCOM ---
CM Note CM Note Notes: Pt being discharged today, to where she lives at [facility]. HC RN set up with [facility]; they will meet with pt at her home tomorrow (Wednesday 11/15). Pt's friends Lina Carter and Loyd Jordan will drive her to [facility]. Pt has been advised by Santa Shin NP to follow up with Dr. Ritchie Pond in his office on Saturday and with Dr. Huntley to have her INR checked on Saturday as well. Pt uses oxygen and already has her own supplies, including a concentrator she will use on her ride home. Date Signed: 11/14/2018 02:57 PM Electronically Signed By:Ngoc Simmons
--- NOTE | 2018-11-14 15:13 | GDS ---
[f rep st] DISCHARGE SUMMARY DISCHARGE DIAGNOSES: 1. Acute right-sided rib fractures. 2. Gait instability. 3. Renal insufficiency. 4. History of cardiomyopathy. 5. History of bioprosthetic valve replacement in 2002. CONSULTATION: Dr. Freeman. BRIEF HISTORY: The patient is an 83-year-old female with a history of bioprosthetic AV replacement, atrial fibrillation and hypertension, who presented after she fell. She tripped over her oxygen tubing while trying to close the blinds in her house. She fell onto a window sill, hit her ribs and came to the emergency room after this occurred. She had a rib chest x-ray performed which showed acute, mildly displaced fractures of the right 9th, 10th and 11th ribs with no pneumothorax noted. In addition, she had further imaging because of the fall. A CT of the abdomen showed no evidence of any type of organ or bowel injury. She has no acute fracture or free fluid. She has mild cirrhosis. No hepatoma or ascites. She has mild biliary dilatation, which is likely post cystectomy baseline. In addition, she had a chest CT performed, which showed acute right 7th through 11th rib fractures. She has no pneumothorax, hemothorax, or pulmonary contusion. She has no acute sternal or thoracic spine fracture. She does have cardiomegaly. No evidence of acute aortic injury. I reviewed her care with Dr. Pond. The plan is for her to be discharged back to [facility] with home care nursing. She will follow up with him on Saturday morning and will need repeat x-rays. HOSPITAL COURSE: 1. Acute rib fractures. She is doing well. I explained to the patient and her family she is at high risk for hemothorax, as well as developing pneumonia. She is very motivated to cough, deep breath. 2. Gait instability. She has physical therapy already arranged at [facility]. 3. Atrial fibrillation. INR is therapeutic at 2.4. 4. Renal insufficiency. Creatinine is 1.2. This is close to her baseline. 5. History of cardiomyopathy. She is status post biventricular AICD placement in 2005. 6. History of bioprosthetic valve. She resumed her oral anticoagulation. DISCHARGE CONDITION: Stable. Blood pressure is 153/77, heart rate is 70, respiratory rate of 14, O2 sat on room air 92%, temperature 36.7 Celsius. MEDICATIONS AT DISCHARGE: Please see the EMR. DISCHARGE INSTRUCTIONS: 1. Recommending she take a lower dose of Coumadin tonight. 2. Call Dr. Pond to make an appointment see him Saturday. 3. If she develops any worsening shortness of breath, fever or chills, return to the ER. 4. INR to be monitored. 5. Message left for Dr. Huntley in regards to patient's care. Copy requested to: Dr. Pond /[id number]/MODL MTDD
[2018-11-14] MEDS ORDERED: WARFARIN SODIUM 5 MG TAB PO SCH (21:00)
[2018-11-14] MEDS ORDERED: LIDOCAINE 4%/MENTHOL 1% PATCH TD SCH (21:00)
[2018-11-14] MEDS ORDERED: traZODone 50 MG TAB PO SCH (21:00)
[2018-11-15] MEDS ORDERED: FUROSEMIDE 20 MG TAB PO SCH (08:00)
[2018-11-15] MEDS ORDERED: PATCH REMOVAL 1 EA PATCH TD SCH (09:00)
[2018-11-17] MEDS ORDERED: WARFARIN SODIUM 2.5 MG TAB PO SCH (21:00)
--- NOTE | 2018-11-18 13:10 | CPEKG ---
Test Reason : chest pain Blood Pressure : / mmHG Vent. Rate : 070 BPM Atrial Rate : 208 BPM P-R Int : 130 ms QRS Dur : 136 ms QT Int : 508 ms P-R-T Axes : 000 150 148 degrees QTc Int : 549 ms Ventricular-paced rhythm Confirmed by Thaddeus Estrada ([id number]) on 11/18/2018 1:10:06 PM Referred By: Nicholas Garcia Confirmed By:Thaddeus Estrada
== END 2018-11-14 15:24 | disposition home health service (06) ==
LOC: EDUNIT# → INTOOBSV 11-14 00:37 → F3N 11-14 02:15
PROVIDERS: ADMIT Student in an Organized Health Care Education/Training Program; ATTEND Internal Medicine
PROC: 30233K1 Transfusion of Nonautologous Frozen Plasma into Peripheral Vein, Percutaneous Approach (ICD-10-PCS; principal; 2018-11-14)
DX: S22.41XA Multiple fractures of ribs, right side, initial encounter for closed fracture (principal); W01.198A Fall on same level from slipping, tripping and stumbling with subsequent striking against other object, initial encounter; Y92.009 Unspecified place in unspecified non-institutional (private) residence as the place of occurrence of the external cause; I48.91 Unspecified atrial fibrillation; R26.89 Other abnormalities of gait and mobility; N18.9 Chronic kidney disease, unspecified; I12.9 Hypertensive chronic kidney disease with stage 1 through stage 4 chronic kidney disease, or unspecified chronic kidney disease; G47.34 Idiopathic sleep related nonobstructive alveolar hypoventilation; Z66 Do not resuscitate; Z95.2 Presence of prosthetic heart valve; Z79.01 Long term (current) use of anticoagulants; Z86.79 Personal history of other diseases of the circulatory system; Z99.81 Dependence on supplemental oxygen
CPT/HCPCS: 36430; 71045; 71101; 71260; 74177; 93005; 96374; 99285; G0378; J3010; P9016; P9017; Q9967; G0390

== ENCOUNTER → 2018-11-17 | Outpatient (CLI) | payer OTHER | LOC: FIMAGING 11:08 | PROVIDERS: ATTEND Nurse Practitioner Family | DX: S22.31XG Fracture of one rib, right side, subsequent encounter for fracture with delayed healing (principal); J90 Pleural effusion, not elsewhere classified; J98.11 Atelectasis ==

== ENCOUNTER → 2018-11-24 | Outpatient (CLI) | payer OTHER | LOC: FIMAGING 12:39 | PROVIDERS: ATTEND Surgery | DX: S22.41XD Multiple fractures of ribs, right side, subsequent encounter for fracture with routine healing (principal); J40 Bronchitis, not specified as acute or chronic; J90 Pleural effusion, not elsewhere classified ==